=== PATIENT | male | born 1970 | race Caucasian/White ===

== ENCOUNTER 2017-10-06 12:56 | Emergency (ER) | payer OTHER ==
[~2017-10-06] VITALS: Ht 170.2 cm; Wt 61.4 kg
[2017-10-06] MEDS ORDERED: HYDROcodone/acetaminophen 10/325mg tab PO ONE (13:45)
[2017-10-06] MEDS ORDERED: ketorolac trometh. 30mg/ml inj. IV ONE (13:45)
[2017-10-06] MEDS ORDERED: IBUP-1984 PO (14:08)
[2017-10-06] MEDS ORDERED: HYDR-565 PO (14:08)
[2017-10-06 14:15] VITALS: BP 119/85
== END 2017-10-06 14:15 | disposition home or self-care (01) ==
LOC: ER 12:57
DX: S42.032A Displaced fracture of lateral end of left clavicle, initial encounter for closed fracture (principal); S09.90XA Unspecified injury of head, initial encounter; Z79.899 Other long term (current) drug therapy; V19.9XXA Pedal cyclist (driver) (passenger) injured in unspecified traffic accident, initial encounter; Y93.55 Activity, bike riding; Y92.410 Unspecified street and highway as the place of occurrence of the external cause; Y99.8 Other external cause status
CPT/HCPCS: 29105; 70450; 73030; 96372; 99284; A4565; J1885; L3650

== ENCOUNTER 2017-10-11 17:33 | Emergency (ER) | payer MEDICAID, OTHER ==
[~2017-10-11] VITALS: Ht 170.2 cm; Wt 60.4 kg
[~2017-10-11 17:33] MED LIST: HYDR-565 PO; IBUP-1984 PO
[2017-10-11 17:38] VITALS: BP 120/90
[2017-10-11] MEDS ORDERED: HYDR-565 PO (17:51)
== END 2017-10-11 18:02 | disposition home or self-care (01) ==
LOC: ER 17:34
DX: M25.512 Pain in left shoulder (principal); Z79.1 Long term (current) use of non-steroidal anti-inflammatories (NSAID); Z79.899 Other long term (current) drug therapy
CPT/HCPCS: 99284